=== PATIENT | female | born 1980 | race Two or more races ===

== ENCOUNTER 2017-02-14 23:01 | Emergency (ER) | payer OTHER ==
[2017-02-14 23:12] VITALS: O2SAT 96
--- NOTE | 2017-02-14 23:41 | EDPHY ---
H & P Stated Complaint: L knee pain x 1mo Time Seen by Provider: 02/14/17 23:27 HPI/ROS: Chief Complaint: Knee pain HPI: 36-year-old woman who is been having persistent left knee pain for the last month. Patient states it is primarily on the middle portion and behind her left knee. She did bump her knee on the corner of a table while working a month ago. She has been ambulating with some discomfort. Is worse when she straightens it. Denies any twisting or other he other injuries. No falls. No numbness or weakness. She has not been taking any medication. Has been applying ice with minimal relief. She has not been seen by her primary care physician. No history of similar injuries in the past. Patient is [place]- speaking only. Is translation it has been provided by a policy writer in the room. ROS: 10 point Review of Systems is negative except as noted in the HPI. PMH: Denies Social History: No smoking, no alcohol, no recreational drug use Family History: non-contributory Physical Exam: General: Awake, alert, no acute distress Left knee: She has full flexion extension. There is no anterior drawer sign. There is no tenderness with loading of the medial or lateral menisci. She has pain with loading of the medial collateral ligament. She also has reproducible tenderness along the medial collateral ligament. No pain or tenderness along the lateral ligaments. No bony tenderness. No patellar tenderness. No deformities. Skin: No rash - Personal History LMP (Females 10-55): 8-14 Days Ago Current Tetanus/Diphtheria Vaccine: Yes - Medical/Surgical History Hx Asthma: No Hx Chronic Respiratory Disease: No Hx Diabetes: No Hx Cardiac Disease: No Hx Renal Disease: No Hx Cirrhosis: No Hx Alcoholism: No Hx HIV/AIDS: No Hx Splenectomy or Spleen Trauma: No Other PMH: PSHx: denies. PMHx: denies - Social History Smoking Status: Never smoked Constitutional: Initial Vital Signs Temperature (C) 36.9 C 02/14/17 23:07 Heart Rate 76 02/14/17 23:07 Respiratory Rate 14 02/14/17 23:07 Blood Pressure 120/75 02/14/17 23:07 O2 Sat (%) 96 02/14/17 23:07 O2 Delivery Mode Room Air Allergies/Adverse Reactions: No Known Allergies Allergy (Unverified 02/14/17 23:07) Home Medications: Medication Instructions Recorded NK [No Known Home Meds] 02/14/17 Medical Decision Making ED Course/Re-evaluation: Patient presenting with a sprain of the medial collateral ligament. There is no bony tenderness. Symptoms have been present for months. X-rays are not indicated at this time. I have advised she is ibuprofen and follow up with primary care physician. She can also apply a Lidoderm patch and apply ice. Return for worsening. Departure - Departure Disposition: Home, Routine, Self-Care Clinical Impression: Knee MCL sprain Condition: Good Instructions: Knee Sprain (ED) Additional Instructions: Take ibuprofen 600 mg 3 times a day. You may apply ice for 15 minutes every 2 hours while awake. You may use a Lidoderm patch available [id number]. Follow up with your primary care physician in 3-4 days if symptoms are not improving. Referrals: Patsy Eckert MD [Primary Care Provider] - As per Instructions
[2017-02-14] MEDS ORDERED: IBUPROFEN 600 MG TAB PO ONE (23:42)
[2017-02-14 23:56] VITALS: BP 120/74; PULSE 72; RESP 16; TEMP 96.8
== END 2017-02-14 23:55 | disposition home or self-care (01) ==
LOC: EDBD 23:01
DX: S83.412A Sprain of medial collateral ligament of left knee, initial encounter (principal); W22.8XXA Striking against or struck by other objects, initial encounter

== ENCOUNTER 2018-09-02 18:58 | Emergency (ER) | payer SELFPAY, OTHER | END 2018-09-02 21:47 | disposition home or self-care (01) ==